=== PATIENT | female | born 1970 | race Caucasian/White ===

== ENCOUNTER 2023-09-05 11:10 | Emergency (ER) | payer OTHER ==
[2023-09-05 11:18] VITALS: BP 106/50; PULSE 63; RESP 18; TEMP 98.1; BMI 26.0
[2023-09-05] MEDS ORDERED: IBUPROFEN 600 MG TABLET (FP) PO ONE ×2 (12:47→13:05)
== END 2023-09-05 14:55 | disposition home or self-care (01) ==
LOC: JERFT 11:10
DX: M25.552 Pain in left hip (principal); M25.562 Pain in left knee; M25.522 Pain in left elbow; W01.0XXA Fall on same level from slipping, tripping and stumbling without subsequent striking against object, initial encounter; Y99.0 Civilian activity done for income or pay
CPT/HCPCS: 73502-TC-LT-FY; 73562-TC-LT-FY; 99283-25